=== PATIENT | male | born 1975 | race Caucasian/White ===

== ENCOUNTER 2018-12-25 23:28 | Inpatient (IN) | payer BC ==
[2018-12-26 00:13] LABS: WHITE BLOOD COUNT 11.8 10^3/ul (4.8-10.8)
[2018-12-26 00:13] LABS: ADD MAN DIFF? NO; BASOPHILS % 0.3 % (0.0-2.0); EOSINOPHILS # 0.4 10^3/ul (0.0-0.5); EOSINOPHILS % 3.1 % (0.0-7.0); HEMATOCRIT 41.4 % (42.0-52.0); HEMOGLOBIN 13.5 g/dl (14.0-18.0); LYMPHOCYTES # 3.4 10^3/ul (0.8-2.9); LYMPHOCYTES % 29.1 % (15.0-51.0); MEAN CORPUSCULAR HEMOGLOBIN 30.5 pg (29.0-33.0); MEAN CORPUSCULAR HGB CONC 32.6 g/dl (32.0-37.0); MEAN CORPUSCULAR VOLUME 93.7 fl (82.0-101.0); MEAN PLATELET VOLUME 9.7 fl (7.4-10.4); MONOCYTE # 0.8 10^3/ul (0.3-0.9); MONOCYTES % 6.8 % (0.0-11.0); NEUTROPHIL # 7.1 10^3/ul (1.6-7.5); NEUTROPHILS % 60.4 % (39.0-77.0); PLATELET COUNT 228 10^3/UL (140-415); POSITIVE DIFF @See below; RED BLOOD COUNT 4.42 10^6/ul (4.70-6.10); RED CELL DISTRIBUTION WIDTH 12.7 % (11.5-14.5)
[2018-12-26 01:35] LABS: ALANINE AMINOTRANSFERASE 31 IU/L (13-69); ALBUMIN 2.6 g/dl (3.3-4.9); ALBUMIN/GLOBULIN RATIO 0.89; ALKALINE PHOSPHATASE 35 IU/L (42-121); ANION GAP 3 (5-13); ASPARTATE AMINO TRANSFERASE 20 IU/L (15-46); BILIRUBIN,INDIRECT 0.5 mg/dl (0-1.1); BILIRUBIN,TOTAL 0.5 mg/dl (0.2-1.3); BLOOD UREA NITROGEN 12 mg/dl (7-20); CALCIUM 6.3 mg/dl (8.4-10.2); CARBON DIOXIDE 21 mmol/L (21-31); CHLORIDE 117 mmol/L (97-110); CREATININE 0.66 mg/dl (0.61-1.24); Estimated GFR > 60 mL/min (>60); GLUCOSE 80 mg/dl (70-220); SODIUM 141 mmol/L (135-144); TOTAL PROTEIN 5.5 g/dl (6.1-8.1)
[2018-12-26 01:38] LABS: POTASSIUM 2.7 mmol/L (3.5-5.1)
[2018-12-26 01:47] LABS: B-TYPE NATRIURETIC PEPTIDE 39 PG/ML (0-125); TROPONIN-I 0.017 ng/ml (0.000-0.120)
[2018-12-26] MEDS: POTASSIUM CHLORIDE 100 ML IVPB ×2 (02:11→04:24)
[2018-12-26] MEDS ORDERED: ACETAMINOPHEN 325 MG TAB PO ×2 (03:30→12:30)
[2018-12-26] MEDS ORDERED: ONDANSETRON 4 MG INJ IV ×2 (03:30→12:30)
[2018-12-26] MEDS: ONDANSETRON 4 MG INJ IV (05:38)
[2018-12-26] MEDS: ASPIRIN 81 MG TAB PO (05:38)
[2018-12-26] MEDS: morphine 4 MG/ML VIAL IV (05:39)
[2018-12-26] MEDS ORDERED: POTASSIUM CHLORIDE (SR) 20 MEQ TAB PO (08:53)
[2018-12-26 10:07] LABS: ANION GAP 5 (5-13); BLOOD UREA NITROGEN 12 mg/dl (7-20); CARBON DIOXIDE 28 mmol/L (21-31); CHLORIDE 105 mmol/L (97-110); CREATININE 0.87 mg/dl (0.61-1.24); Estimated GFR > 60 mL/min (>60); GLUCOSE 97 mg/dl (70-220); SODIUM 138 mmol/L (135-144)
[2018-12-26 10:20] LABS: TROPONIN-I 0.616 ng/ml (0.000-0.120)
[2018-12-26] MEDS: ENOXAPARIN 100 MG/ML SYG SC ×2 (11:03→21:19)
[2018-12-26] MEDS ORDERED: ZOLPIDEM 5 MG TAB PO (12:30)
[2018-12-26] MEDS ORDERED: MAGNESIUM HYDROXIDE 30ML CUP PO (12:30)
[2018-12-26] MEDS ORDERED: NITROGLYCERIN (SL) 0.4 MG TAB SL (12:30)
[2018-12-26] MEDS ORDERED: DOCUSATE SODIUM 100 MG CAP PO (12:30)
[2018-12-26] MEDS ORDERED: NACL 0.9% 3 ML SYG IV (12:30)
[2018-12-26 16:24] LABS: CREATINE KINASE 222 IU/L (23-200)
[2018-12-26 16:37] LABS: CK INDEX 3.9
[2018-12-26 16:42] LABS: CK-MB 8.69 ng/ml (0.0-2.4)
[2018-12-26] MEDS: FAMOTIDINE 20 MG INJ IV (20:48)
[2018-12-27 01:28] LABS: CREATINE KINASE 181 IU/L (23-200)
[2018-12-27 01:40] LABS: CK INDEX 3.9
[2018-12-27 01:43] LABS: CK-MB 7.06 ng/ml (0.0-2.4)
[2018-12-27 06:07] LABS: ADD MAN DIFF? NO
[2018-12-27 06:17] LABS: BASOPHIL # 0.1 10^3/ul (0.0-0.1); BASOPHILS % 0.6 % (0.0-2.0); EOSINOPHILS # 0.4 10^3/ul (0.0-0.5); EOSINOPHILS % 3.9 % (0.0-7.0); HEMATOCRIT 43.6 % (42.0-52.0); LYMPHOCYTES # 3.2 10^3/ul (0.8-2.9); MEAN CORPUSCULAR HEMOGLOBIN 30.3 pg (29.0-33.0); MEAN CORPUSCULAR HGB CONC 32.1 g/dl (32.0-37.0); MEAN CORPUSCULAR VOLUME 94.4 fl (82.0-101.0); MONOCYTE # 0.7 10^3/ul (0.3-0.9); MONOCYTES % 8.2 % (0.0-11.0); NEUTROPHIL # 4.5 10^3/ul (1.6-7.5); NEUTROPHILS % 50.9 % (39.0-77.0); PLATELET COUNT 272 10^3/UL (140-415); RED BLOOD COUNT 4.62 10^6/ul (4.70-6.10); RED CELL DISTRIBUTION WIDTH 12.9 % (11.5-14.5)
[2018-12-27 06:17] LABS: WHITE BLOOD COUNT 8.9 10^3/ul (4.8-10.8)
[2018-12-27 06:37] LABS: ALANINE AMINOTRANSFERASE 42 IU/L (13-69); ALBUMIN/GLOBULIN RATIO 1.29; ALKALINE PHOSPHATASE 55 IU/L (42-121); ANION GAP 6 (5-13); ASPARTATE AMINO TRANSFERASE 29 IU/L (15-46); BILIRUBIN,INDIRECT 0.7 mg/dl (0-1.1); BILIRUBIN,TOTAL 0.7 mg/dl (0.2-1.3); BLOOD UREA NITROGEN 16 mg/dl (7-20); CARBON DIOXIDE 29 mmol/L (21-31); CHLORIDE 104 mmol/L (97-110); CHOL/HDL RATIO 8.4 RATIO; CHOLESTEROL 229 mg/dl (100-200); CREATININE 1.06 mg/dl (0.61-1.24); Estimated GFR > 60 mL/min (>60); GLUCOSE 102 mg/dl (70-220); HDL CHOLESTEROL 27 mg/dl (27-67); LDL CHOLESTEROL,CALCULATED 181 mg/dl; MAGNESIUM 2.2 mg/dl (1.7-2.5); POTASSIUM 4.9 mmol/L (3.5-5.1); SODIUM 139 mmol/L (135-144); TOTAL PROTEIN 7.1 g/dl (6.1-8.1); TRIGLYCERIDES 107 mg/dl (0-149)
[2018-12-27 07:30] LABS: HEMOGLOBIN A1C 5.5 % (0-5.9)
[2018-12-27] MEDS: ASPIRIN (EC) 325 MG TAB PO (09:43)
[2018-12-27] MEDS: FAMOTIDINE 20 MG INJ IV (09:43)
[2018-12-27] MEDS: ENOXAPARIN 100 MG/ML SYG SC ×2 (09:51→21:54)
[2018-12-27] MEDS: FAMOTIDINE 20 MG TAB PO (20:02)
[2018-12-27] MEDS: ATORVASTATIN 80 MG TAB PO (20:02)
[2018-12-28 06:18] LABS: ADD MAN DIFF? NO
[2018-12-28 06:30] LABS: BASOPHIL # 0.1 10^3/ul (0.0-0.1); BASOPHILS % 0.5 % (0.0-2.0); EOSINOPHILS # 0.4 10^3/ul (0.0-0.5); EOSINOPHILS % 3.8 % (0.0-7.0); HEMATOCRIT 43.1 % (42.0-52.0); LYMPHOCYTES # 3.6 10^3/ul (0.8-2.9); LYMPHOCYTES % 36.8 % (15.0-51.0); MEAN CORPUSCULAR HEMOGLOBIN 30.9 pg (29.0-33.0); MEAN CORPUSCULAR HGB CONC 32.5 g/dl (32.0-37.0); MEAN CORPUSCULAR VOLUME 95.1 fl (82.0-101.0); MEAN PLATELET VOLUME 10.3 fl (7.4-10.4); NEUTROPHIL # 4.8 10^3/ul (1.6-7.5); NEUTROPHILS % 48.6 % (39.0-77.0); PLATELET COUNT 265 10^3/UL (140-415); RED BLOOD COUNT 4.53 10^6/ul (4.70-6.10); RED CELL DISTRIBUTION WIDTH 12.7 % (11.5-14.5)
[2018-12-28 06:30] LABS: WHITE BLOOD COUNT 9.9 10^3/ul (4.8-10.8)
[2018-12-28 06:42] LABS: INR 0.92; PROTIME 12.5 Sec (11.9-14.9)
[2018-12-28 06:43] LABS: PARTIAL THROMBOPLASTIN TIME 40.1 Sec (23.0-35.0)
[2018-12-28 06:48] LABS: ANION GAP 6 (5-13); BLOOD UREA NITROGEN 14 mg/dl (7-20); CARBON DIOXIDE 28 mmol/L (21-31); CHLORIDE 106 mmol/L (97-110); CREATININE 0.99 mg/dl (0.61-1.24); Estimated GFR > 60 mL/min (>60); GLUCOSE 108 mg/dl (70-220); POTASSIUM 4.6 mmol/L (3.5-5.1); SODIUM 140 mmol/L (135-144)
[2018-12-28] MEDS: DIPHENHYDRAMINE 50 MG CAP PO (07:00)
[2018-12-28] MEDS: DIAZEPAM 5 MG TAB PO (07:00)
[2018-12-28] MEDS ORDERED: LIDOCAINE 1% (MDV) 20 ML INJ (08:27)
[2018-12-28] MEDS ORDERED: IODIXANOL LOCM 100 ML BTL ×4 (08:27→10:39)
[2018-12-28] MEDS ORDERED: MIDAZOLAM 1 MG/ML 2 ML INJ (08:43)
[2018-12-28] MEDS ORDERED: FENTAnyl 50 MCG/ML VIAL (08:43)
[2018-12-28] MEDS ORDERED: VERAPAMIL 5 MG INJ (08:43)
[2018-12-28] MEDS ORDERED: HEPARIN 1000 UNITS/ML 10 ML INJ (08:44)
[2018-12-28] MEDS: FAMOTIDINE 20 MG TAB PO ×2 (09:00→20:41)
[2018-12-28] MEDS ORDERED: BIVALIRUDIN 250MG /NS 50 ML 50 ML IVPB ×3 (09:49→11:43)
[2018-12-28] MEDS ORDERED: morphine 10 MG INJ (10:34)
[2018-12-28] MEDS ORDERED: ASPIRIN 325 MG TAB (11:13)
[2018-12-28] MEDS ORDERED: TICAGRELOR 90 MG TABLET (11:13)
[2018-12-28] MEDS ORDERED: morphine 2 MG INJ IV (11:30)
[2018-12-28] MEDS ORDERED: ACETAMINOPHEN 325 MG TAB PO (11:30)
[2018-12-28] MEDS ORDERED: AL HYDROX/MG HYDROX/SIMETH 30 ML CUP PO (11:30)
[2018-12-28] MEDS ORDERED: ONDANSETRON 4 MG INJ IV (11:30)
[2018-12-28] MEDS ORDERED: OXYCODONE/ACETAMINOPHEN (5/325) TAB PO (11:30)
[2018-12-28] MEDS: ASPIRIN (EC) 325 MG TAB PO (12:00)
[2018-12-28] MEDS: SOD CHLORIDE 0.9% 1,000 ML IV (12:50)
[2018-12-28] MEDS: morphine 2 MG INJ IV (12:52)
[2018-12-28] MEDS ORDERED: hydrALAzine 20 MG INJ IV (20:00)
[2018-12-28 20:29] LABS: CREATINE KINASE 123 IU/L (23-200)
[2018-12-28] MEDS: ATORVASTATIN 80 MG TAB PO (20:41)
[2018-12-28] MEDS: BENAZEPRIL 20 MG TAB PO (20:41)
[2018-12-28 20:42] LABS: CK INDEX 2.5
[2018-12-28 20:43] LABS: CK-MB 3.05 ng/ml (0.0-2.4)
[2018-12-28] MEDS: ZOLPIDEM 5 MG TAB PO (22:11)
[2018-12-29 05:28] LABS: ADD MAN DIFF? NO
[2018-12-29 05:31] LABS: WHITE BLOOD COUNT 10.2 10^3/ul (4.8-10.8)
[2018-12-29 05:31] LABS: BASOPHILS % 0.4 % (0.0-2.0); EOSINOPHILS # 0.4 10^3/ul (0.0-0.5); EOSINOPHILS % 3.8 % (0.0-7.0); HEMATOCRIT 41.2 % (42.0-52.0); HEMOGLOBIN 13.6 g/dl (14.0-18.0); LYMPHOCYTES # 2.6 10^3/ul (0.8-2.9); LYMPHOCYTES % 25.4 % (15.0-51.0); MEAN CORPUSCULAR HEMOGLOBIN 31.1 pg (29.0-33.0); MEAN CORPUSCULAR VOLUME 94.3 fl (82.0-101.0); MEAN PLATELET VOLUME 9.9 fl (7.4-10.4); MONOCYTE # 0.9 10^3/ul (0.3-0.9); MONOCYTES % 8.6 % (0.0-11.0); NEUTROPHIL # 6.3 10^3/ul (1.6-7.5); NEUTROPHILS % 61.4 % (39.0-77.0); PLATELET COUNT 256 10^3/UL (140-415); RED BLOOD COUNT 4.37 10^6/ul (4.70-6.10); RED CELL DISTRIBUTION WIDTH 12.4 % (11.5-14.5)
[2018-12-29 06:01] LABS: ANION GAP 6 (5-13); BLOOD UREA NITROGEN 13 mg/dl (7-20); CALCIUM 9.3 mg/dl (8.4-10.2); CARBON DIOXIDE 29 mmol/L (21-31); CHLORIDE 104 mmol/L (97-110); CREATININE 0.99 mg/dl (0.61-1.24); Estimated GFR > 60 mL/min (>60); GLUCOSE 91 mg/dl (70-220); POTASSIUM 4.7 mmol/L (3.5-5.1); SODIUM 139 mmol/L (135-144)
[2018-12-29 06:15] LABS: CK INDEX 4.6; CREATINE KINASE 141 IU/L (23-200)
[2018-12-29 06:17] LABS: CK-MB 6.48 ng/ml (0.0-2.4)
[2018-12-29] MEDS: ASPIRIN (EC) 325 MG TAB PO (08:55)
[2018-12-29] MEDS: FAMOTIDINE 20 MG TAB PO (08:55)
[2018-12-29] MEDS: BENAZEPRIL 20 MG TAB PO (08:56)
[2018-12-29] MEDS: TICAGRELOR 90 MG TABLET PO (13:17)
[2018-12-30] MEDS ORDERED: ASPIRIN 81 MG TAB PO (09:00)
== END 2018-12-29 13:45 | disposition home or self-care (01) | DRG 247 ==
LOC: ICU 12-28 12:02 → E/R 23:28 → 6WM 12-26 03:26
PROVIDERS: Internal Medicine
PROC: 0271356 Dilation of Coronary Artery, Two Arteries, Bifurcation, with Two Drug-eluting Intraluminal Devices, Percutaneous Approach (ICD-10-PCS; principal; 2018-12-28 08:43)
PROC: 4A023N7 Measurement of Cardiac Sampling and Pressure, Left Heart, Percutaneous Approach (ICD-10-PCS; 2018-12-28 08:43)
PROC: B211YZZ Fluoroscopy of Multiple Coronary Arteries using Other Contrast (ICD-10-PCS; 2018-12-28 08:43)
DX: I21.4 Non-ST elevation (NSTEMI) myocardial infarction (principal); F17.200 Nicotine dependence, unspecified, uncomplicated; I10 Essential (primary) hypertension; R00.1 Bradycardia, unspecified; E78.5 Hyperlipidemia, unspecified; E87.6 Hypokalemia; I25.10 Atherosclerotic heart disease of native coronary artery without angina pectoris
CPT/HCPCS: 36415; 71045; 80048; 80053; 80061; 82550; 82553; 83036; 83735; 83880; 84443; 84484; 85025; 85610; 85730; 87081; 92928; 93005; 93306; 93458; 99285-25